=== PATIENT | female | born 1975 | race Caucasian/White ===

== ENCOUNTER → 2019-06-18 | Outpatient (CLI) | payer BC ==
--- NOTE | 2019-06-18 15:10 | Diagnostic Imaging Report ---
EXAMINATION: Left ankle radiographs, 3 views. COMPARISON: None. HISTORY: 43-year-old female, left ankle pain. Fell down stairs. FINDINGS: There is a very small area of high attenuation adjacent to the distal fibula and lateral talus which is just above the level of the distal fibular tip. This potentially could reflect an avulsion related injury of uncertain exact age. There is an ossification adjacent to the dorsal aspect of the head of the talus which appears at least partially corticated. This is most likely long-standing. Recommend comparison with earlier prior imaging, if available, to assess for potential stability. There is a normal variant os trigonum. The alignment of the ankle mortise is unremarkable. There is no otherwise identified potential acute fracture. There is soft tissue swelling adjacent to the lateral greater than medial malleoli. IMPRESSION: 1. Small area of high attenuation adjacent to the distal fibula and lateral talus which potentially could relate to an avulsion related injury of uncertain exact age. 2. Ossification adjacent to the dorsal aspect of the head of the talus which is at least partially corticated and suspected to be long-standing. Recommend comparison with prior imaging, if available. 3. No abnormal alignment of the ankle mortise. 4. Prominent soft tissue swelling adjacent to the lateral greater than medial malleoli. Dictated by: Dictated on workstation # [id number]
== END ==
LOC: RAD FS 13:41
PROVIDERS: ATTEND Nurse Practitioner
DX: M89.8X7 Other specified disorders of bone, ankle and foot (principal); M79.89 Other specified soft tissue disorders; W10.9XXA Fall (on) (from) unspecified stairs and steps, initial encounter
CPT/HCPCS: 73610

== ENCOUNTER → 2020-06-23 | Outpatient (CLI) | payer BC ==
--- NOTE | 2020-06-23 16:40 | Diagnostic Imaging Report ---
INDICATION: Foot pain. COMPARISON: Radiographs of the left ankle dated 06/18/2019. TECHNIQUE: Three radiographs of the left foot dated 06/23/2020. FINDINGS: A well-corticated ossific density is again identified along the dorsum of the talar neck, stable from the prior examination. A tiny ossific density is noted overlying the superior aspect of the anterior process of the calcaneus on the lateral radiograph. No additional fracture. No dislocation. No destructive osseous process. Minimal scattered degenerative changes, greatest involving the 1st MTP joint, with minimal joint space narrowing. The Lisfranc joint is well aligned. No significant calcaneal enthesophytes. IMPRESSION: Tiny calcific density associated with the superior aspect of the anterior process of the calcaneus which may relate to a tiny age-indeterminate fracture versus accessory ossicle. Should symptoms persist, further evaluation with a CT could be performed. Chronic avulsion fracture of the talar neck. Minimal scattered degenerative changes, greatest involving the 1st MTP joint. Dictated by: Dictated on workstation # [id number]
== END ==
LOC: RAD FS 11:54
PROVIDERS: ATTEND Nurse Practitioner Family
DX: M19.072 Primary osteoarthritis, left ankle and foot (principal)
CPT/HCPCS: 73630

== ENCOUNTER 2021-11-22 23:12 | Emergency (ER) | payer BC ==
[~2021-11-22] VITALS: Ht 173 cm; Wt 94.6 kg
[2021-11-22] MEDS ORDERED: KETOROLAC 60 MG/2 ML VIAL IM STA (23:27)
[2021-11-22] MEDS ORDERED: diphenhydrAMINE 50 MG/ML INJ (BENADRYL) IM STA (23:27)
[2021-11-22] MEDS ORDERED: PROMETHAZINE INJ 25 MG/ML (PHENERGAN) AMP IM STA (23:27)
--- NOTE | 2021-11-22 23:34 | ED Headache ---
General Chief Complaint: Head/Cervical Problems Stated Complaint: HEADACHE Source: patient History of Present Illness Date Seen by Provider: Nov 22, 2021 Time Seen by Provider: 23:16 Initial Comments 46-year-old female presenting with complaints of headache that has been bothering her for at least the last 3 days. She had thought she might have COVID but had a negative COVID test today at urgent care. She does have congestion and allergies that have been building up. She has not been using her nasal steroid that usually helps. She also has a history of migraine headaches and tried taking a migraine pill as well as ibuprofen tonight but the migraine pill did not help and the ibuprofen only helps some. She now feels sinus pressure and pressure in the back of her head. She has had some nausea but no vomiting. She denies fever, chills, cough, abdominal pain, pain with urination. She did take some melatonin to help her sleep tonight and is starting to get sleepy on arrival to the ED but states the reason she came to the emergency department tonight was because she could not sleep at home Timing/Duration: waxing and waning (Over the last 3 days) Severity/Quality: severe, throbbing Location: global Prior Headaches/Recent Trauma: frequent headaches Modifying Factors: worse with movement Associated Symptoms: No confusion, No fatigue; facial pain (Sinus pressure); No fever/chills, No flushing, No loss of consciousness; nausea/vomiting (Nausea but no vomiting), nasal congestion, nasal drainage; No numbness in legs/feet, No rash, No seizures, No sinus infection, No stiff neck, No vision changes, No weakness Allergies and Home Medications Allergies Coded Allergies: No Known Drug Allergies (Unverified , 11/22/21) Patient Home Medication List Home Medication List Reviewed: Yes Review of Systems Review of Systems Constitutional: No chills, No diaphoresis, No fever Eyes: See HPI Ears, Nose, Mouth, Throat: denies ear pain, denies ear discharge, denies nose pain; nose discharge; denies epistaxis, denies mouth pain Respiratory: No cough Cardiovascular: No chest pain Gastrointestinal: see HPI Genitourinary: no symptoms reported Musculoskeletal: no symptoms reported Skin: No rash Psychiatric/Neurological: See HPI Past Gnqzuga-Ohzcum-Rdhyuk Hx Seasonal Allergies Seasonal Allergies: Yes Past Medical History Surgery/Hospitalization HX: Migraine headaches Physical Exam Vital Signs Vital Signs - First Documented 11/22/21 23:26 Temp 36.0 Pulse 79 Resp 20 B/P (MAP) 154/105 (121) Pulse Ox 99 O2 Delivery Room Air Capillary Refill : Height, Weight, BMI Height: '" Weight: lbs. oz. kg; BMI Method: General Appearance: WD/WN, no apparent distress HEENT: PERRL/EOMI, pharynx normal, other (Tender to palpation over the frontal and maxillary sinuses bilaterally) Neck: non-tender, full range of motion, supple, normal inspection Cardiovascular: normal peripheral pulses, regular rate, rhythm Respiratory: chest non-tender, lungs clear, normal breath sounds, no respiratory distress, no accessory muscle use Gastrointestinal: normal bowel sounds, non tender, soft, no pulsatile mass Extremities: normal range of motion, non-tender, normal capillary refill Psychiatric: alert, oriented x 3 Crainal Nerves: normal hearing, normal speech, PERRL Coordination/Gait: normal gait Motor/Sensory: no motor deficit, no sensory deficit Skin: normal color, warm/dry; No rash Progress/Results/Core Measures Results/Orders My Orders Orders - PATRICK MCDUFFIE MD Ketorolac Injection (Toradol Injection) (11/22/21 23:27) Dexamethasone Injection (Decadron Inje (11/22/21 23:27) Diphenhydramine Injection (Benadryl Inje (11/22/21 23:27) Promethazine Injection (Phenergan Injec (11/22/21 23:27) Vital Signs/I&O 11/22/21 11/22/21 23:26 23:52 Temp 36.0 36.0 Pulse 79 79 Resp 20 20 B/P (MAP) 154/105 (121) 128/88 Pulse Ox 99 99 O2 Delivery Room Air Room Air Progress Progress Note : Progress Note Since she has no focal neurologic deficit and is having pain and pressure over the sinuses as well try migraine cocktail and add in a steroid to try and help with allergies and sinus pressure. Encouraged to check back through the primary provider for continued concerns. Departure Impression Primary Impression: Sinus headache Additional Impression: Migraine headache Qualified Codes: G43.019 - Migraine without aura, intractable, without status migrainosus Disposition: 01 HOME, SELF-CARE Condition: Stable Departure-Patient Inst. Decision time for Depature: 23:34 Referrals: [facility] [place] (PCP) Primary Care Physician CYNTHIA BURT APRN (Family) Primary Care Physician Patient Instructions: Headache, Adult ED, How to Keep Track of Your Headaches, Home Headache Remedies Add. Discharge Instructions: Rest in a cool dark room. Stay well-hydrated and drink plenty of fluids and electrolyte drinks. Continue with your regular medications at home. Check back with the clinic for continued concerns or if still not improving. All discharge instructions reviewed with patient and/or family. Voiced understanding. Work/School Note: Work Release Form Date Seen in the Emergency Department: Nov 22, 2021 Return to Work: Nov 24, 2021 Restrictions: No Restrictions PATRICK MCDUFFIE MD Nov 22, 2021 23:34
[2021-11-22 23:52] VITALS: BP 128/88
== END 2021-11-22 23:53 | disposition home or self-care (01) ==
LOC: EDUNIT# 23:12 → ER FS 23:15
DX: G43.909 Migraine, unspecified, not intractable, without status migrainosus (principal); Z28.310 Unvaccinated for COVID-19
CPT/HCPCS: 99285

== ENCOUNTER 2022-01-26 20:01 | Emergency (ER) | payer BC ==
[~2022-01-26] VITALS: Ht 173.7 cm; Wt 93.3 kg
--- NOTE | 2022-01-26 20:09 | ED Abdominal Pain ---
General Stated Complaint: ABD PAIN,N/V/D History of Present Illness Date Seen by Provider: Jan 26, 2022 Time Seen by Provider: 20:09 Initial Comments 46-year-old female with PMH of migraine/depression, is here with complaints of abdominal pain associated with nausea and vomiting and diarrhea for the past 3 days. Abdominal pain started 3 days ago and has been intermittent in nature and has slowly been worsening. Nausea and diarrhea began today with approximately 6 episodes of diarrhea, and one episode of vomiting. Patient had German food from a restaurant yesterday evening for dinner which has triggered her pain and symptoms worsen. No one else who ate at the restaurant is sick. Denies chest pain, palpitations, SOB, cough, fever, chills, lightheadedness, headache. Allergies and Home Medications Allergies Coded Allergies: No Known Drug Allergies (Unverified , 11/22/21) Patient Home Medication List Home Medication List Reviewed: Yes Review of Systems Review of Systems Constitutional: no symptoms reported EENTM: No Symptoms Reported Respiratory: No Symptoms Reported Cardiovascular: No Symptoms Reported Gastrointestinal: Abdominal Pain, Diarrhea, Nausea, Vomiting Genitourinary: No Symptoms Reported Musculoskeletal: no symptoms reported Skin: no symptoms reported Psychiatric/Neurological: No Symptoms Reported Endocrine: No Symptoms Reported Hematologic/Lymphatic: No Symptoms Reported Past Lecywsn-Edzhog-Heatcv Hx Seasonal Allergies Seasonal Allergies: Yes Past Medical History Surgery/Hospitalization HX: Migraine headaches Physical Exam Vital Signs Vital Signs - First Documented 01/26/22 20:16 Temp 36.4 Pulse 88 Resp 20 B/P (MAP) 133/83 (100) Pulse Ox 100 O2 Delivery Room Air Capillary Refill : Height/Weight/BMI Height: '" Weight: lbs. oz. kg; 31.00 BMI Method: General Appearance: WD/WN, no apparent distress HEENT: PERRL/EOMI Neck: non-tender, full range of motion Respiratory: chest non-tender, lungs clear, normal breath sounds Cardiovascular: regular rate, rhythm Gastrointestinal: normal bowel sounds, soft, no organomegaly, no pulsatile mass, tenderness (diffuse) Extremities: normal range of motion Back: normal inspection, no CVA tenderness Pelvic: normal external exam Neurologic/Psychiatric: alert, normal mood/affect, oriented x 3 Skin: normal color Focused Exam Lactate Level 01/26/22 20:30: Lactic Acid Level 1.25 Lactic Acid Level Laboratory Tests Test 01/26/22 20:30 Lactic Acid Level 1.25 MMOL/L (0.50-2.00) Progress/Results/Core Measures Results/Orders Lab Results Laboratory Tests Test 01/26/22 20:07 01/26/22 20:13 01/26/22 20:30 01/26/22 20:45 Range/Units Urine Color YELLOW Urine Clarity SL CLOUDY Urine pH 6.0 5-9 Urine Specific [place] 1.020 1.016-1.022 Urine Protein NEGATIVE NEGATIVE Urine Glucose (UA) NEGATIVE NEGATIVE Urine Ketones TRACE H NEGATIVE Urine Nitrite NEGATIVE NEGATIVE Urine Bilirubin 1+ H NEGATIVE Urine Urobilinogen 0.2 < = 1.0 MG/DL Urine Leukocyte Esterase 2+ H NEGATIVE Urine RBC (Auto) NEGATIVE NEGATIVE Urine RBC RARE /HPF Urine WBC 10-25 H /HPF Urine Squamous Epithelial Cells 10-25 H /HPF Urine Crystals NONE /LPF Urine Bacteria FEW H /HPF Urine Casts NONE /LPF Urine Mucus NEGATIVE /LPF Urine Culture Indicated YES Urine Test NEGATIVE NEGATIVE Urine Opiates Screen NEGATIVE NEGATIVE Urine Oxycodone Screen NEGATIVE NEGATIVE Urine Methadone Screen NEGATIVE NEGATIVE Urine Propoxyphene Screen NEGATIVE NEGATIVE Urine Barbiturates Screen NEGATIVE NEGATIVE Ur Tricyclic Antidepressants Screen NEGATIVE NEGATIVE Urine Phencyclidine Screen NEGATIVE NEGATIVE Urine Amphetamines Screen NEGATIVE NEGATIVE Urine Methamphetamines Screen NEGATIVE NEGATIVE Urine Benzodiazepines Screen POSITIVE H NEGATIVE Urine Cocaine Screen NEGATIVE NEGATIVE Urine Cannabinoids Screen NEGATIVE NEGATIVE White Blood Count 14.3 H 4.3-11.0 10^3/uL Red Blood Count 5.06 3.80-5.11 10^6/uL Hemoglobin 12.0 11.5-16.0 g/dL Hematocrit 38 35-52 % Mean Corpuscular Volume 75 L 80-99 fL Mean Corpuscular Hemoglobin 24 L 25-34 pg Mean Corpuscular Hemoglobin Concent 32 32-36 g/dL Red Cell Distribution Width 17.9 H 10.0-14.5 % Platelet Count 428 H 130-400 10^3/uL Mean Platelet Volume 11.0 9.0-12.2 fL Immature Granulocyte % (Auto) 0 % Neutrophils (%) (Auto) 80 H 42-75 % Lymphocytes (%) (Auto) 13 12-44 % Monocytes (%) (Auto) 7 0-12 % Eosinophils (%) (Auto) 1 0-10 % Basophils (%) (Auto) 0 0-10 % Neutrophils # (Auto) 11.4 H 1.8-7.8 10^3/uL Lymphocytes # (Auto) 1.8 1.0-4.0 10^3/uL Monocytes # (Auto) 1.0 0.0-1.0 10^3/uL Eosinophils # (Auto) 0.1 0.0-0.3 10^3/uL Basophils # (Auto) 0.0 0.0-0.1 10^3/uL Immature Granulocyte # (Auto) 0.1 0.0-0.1 10^3/uL Sodium Level 137 135-145 MMOL/L Potassium Level 3.6 3.6-5.0 MMOL/L Chloride Level 102 98-107 MMOL/L Carbon Dioxide Level 21 21-32 MMOL/L Anion Gap 14 5-14 MMOL/L Blood Urea Nitrogen 9 7-18 MG/DL Creatinine 0.92 0.60-1.30 MG/DL Estimat Glomerular Filtration Rate 77 BUN/Creatinine Ratio 10 Glucose Level 130 H 70-105 MG/DL Calcium Level 8.8 8.5-10.1 MG/DL Corrected Calcium 9.0 8.5-10.1 MG/DL Magnesium Level 2.2 1.6-2.4 MG/DL Total Bilirubin 0.3 0.1-1.0 MG/DL Aspartate Amino Transf (AST/SGOT) 15 5-34 U/L Alanine Aminotransferase (ALT/SGPT) 6 0-55 U/L Alkaline Phosphatase 82 40-136 U/L Troponin I < 0.30 <0.30 NG/ML Total Protein 6.8 6.4-8.2 GM/DL Albumin 3.8 3.2-4.5 GM/DL Lipase 30 8-78 U/L Lactic Acid Level 1.25 0.50-2.00 MMOL/L My Orders Orders - GLORIA MANRIQUEZ MD Drug Screen Stat (Urine) (01/26/22 20:09) Hcg,Qualitative Urine (01/26/22 20:09) Ua Culture If Indicated (01/26/22 20:09) Cbc With Automated Diff (01/26/22 20:10) Comprehensive Metabolic Panel (01/26/22 20:10) Hepatitis Panel Acute (01/26/22 20:10) Lactic Acid Analyzer (01/26/22 20:10) Lipase (01/26/22 20:10) Magnesium (01/26/22 20:10) Troponin I Fs (01/26/22 20:10) Ct Abd/Pelv W (Appendicitis) (01/26/22 20:18) Ed Iv/Invasive Line Start (01/26/22 20:18) Ns Iv 1000 Ml (Sodium Chloride 0.9%) (01/26/22 20:30) Ondansetron Injection (Zofran Injectio (01/26/22 20:30) Ketorolac Injection (Toradol Injection) (01/26/22 20:30) Famotidine Injection (Pepcid Injection) (01/26/22 20:30) Iohexol Injection (Omnipaque 350 Mg/Ml 1 (01/26/22 20:30) Received Contrast (Hold Metformin- Contr (01/26/22 20:30) Sodium Chloride Flush (Catheter Flush Sy (01/26/22 20:30) Ns (Ivpb) (Sodium Chloride 0.9% Ivpb Bag (01/26/22 20:30) Covid 19 Inhouse Test (01/26/22 20:36) Manual Differential (01/26/22 20:13) Urine Culture (01/26/22 20:07) Ceftriaxone 1 Gm Pre-Mix (Rocephin 1 Gm (01/26/22 21:00) Medications Given in ED Current Medications Medications Dose Ordered Sig/Reese Route Start Time Stop Time Status Last Admin Dose Admin Famotidine 20 mg ONCE ONCE IVP 01/26/22 20:30 01/26/22 20:31 DC 01/26/22 20:31 20 MG Ketorolac Tromethamine 15 mg ONCE ONCE IVP 01/26/22 20:30 01/26/22 20:31 DC 01/26/22 20:30 15 MG Ondansetron HCl 4 mg ONCE ONCE IVP 01/26/22 20:30 01/26/22 20:31 DC 01/26/22 20:32 4 MG Sodium Chloride 10 ml NEEDED PRN IV 01/26/22 20:30 UNV 01/26/22 20:48 10 ML Vital Signs/I&O 01/26/22 20:16 Temp 36.4 Pulse 88 Resp 20 B/P (MAP) 133/83 (100) Pulse Ox 100 O2 Delivery Room Air Progress Progress Note : Progress Note 1. ABDOMINAL PAIN: ACUTE GASTROENTERITIS - CT ABD: Findings suggestive of enteritis. Inflammatory bowel disease could a lso have this appearance in the appropriate clinical scenario. No bowel obstruction. Recommend correlation with patient history and follow-up as indicated. Small amount of free fluid in the abdomen and pelvis no evidence of free air. - CBC/ CMP: WBC is 14.3 with a left shift - Lipase:normal - NS IVF bolus STAT/ Toradol 15mg iv /Zofran 4mg iv/ Pepcid 20mg iv -The patient was seen in the ED, and treated appropriately to presentation at a specific point in time. Patient is informed that there is a possibility that disease and illness can evolve and change in acuity rapidly or slowly after patient is discharged from the ER. Precautionary advice given to the patient for immediate return to ER if symptoms worsen or do not resolve, and to seek emergency care sooner rather than later. Pt also advised on the importance of PCP follow up and compliance with management and follow up plan with PCP and/or specialist, as this is part of the management plan. Pt verbally expressed understanding. 2. ACUTE CYSTITIS : - UA is positive for leukocyte esterase, WBC, bacteria - UDS is positive for benzos - Ceftriaxone 1gm iv STAT in ER - Prescription for Cefpodoxime 200mg bid for 5 days - Prescription Zofran ODT as needed for nausea and vomiting Q4H - Adequate water intake advised, and bland diet - Follow up with PCP in 7 to 10 days Diagnostic Imaging Diagonstic Imaging: CT Plain Films/CT/US/NM/MRI: abdomen Departure Impression Primary Impression: Abdominal pain Qualified Codes: R10.84 - Generalized abdominal pain Additional Impressions: Acute gastroenteritis Acute cystitis without hematuria Disposition: 01 HOME, SELF-CARE Condition: Stable Departure-Patient Inst. Referrals: [facility] (PCP) Primary Care Physician CYNTHIA BURT APRN (Family) Primary Care Physician Patient Instructions: Acute Cystitis (DC), Viral Gastroenteritis, Adult (DC) Add. Discharge Instructions: - Prescription for Cefpodoxime 200mg bid for 5 days - Prescription Zofran ODT as needed for nausea and vomiting Q4H - Adequate water intake advised, and bland diet - Follow up with PCP in 7 to 10 days Scripts Ondansetron (Ondansetron Odt) 4 Mg Tab.rapdis 4 MG SL Q4H PRN for NAUSEA/VOMITING for 3 Days, #15 TAB Prov: GLORIA MANRIQUEZ MD 01/26/22 Cefpodoxime Proxetil (Cefpodoxime Proxetil) 200 Mg Tablet 200 MG PO BID for 5 Days, #10 TAB Prov: GLORIA MANRIQUEZ MD 01/26/22 GLORIA MANRIQUEZ MD Jan 26, 2022 20:09
[2022-01-26 20:22] LABS: CLARITY,URINE SL CLOUDY; COLOR,URINE YELLOW; GLUCOSE, URINE (UA) NEGATIVE (NEGATIVE); KETONES,URINE TRACE (NEGATIVE); LEUKOCYTE ESTERASE ,URINE 2+ (NEGATIVE); NITRITE,URINE NEGATIVE (NEGATIVE); PROTEIN,URINE NEGATIVE (NEGATIVE)
[2022-01-26 20:23] LABS: HCG,QUALITATIVE URINE NEGATIVE (NEGATIVE)
[2022-01-26 20:29] LABS: BASOPHILS % (AUTO) 0 % (0-10); EOSINOPHILS # (AUTO) 0.1 10^3/uL (0.0-0.3); EOSINOPHILS % (AUTO) 1 % (0-10); HEMATOCRIT 38 % (35-52); LYMPHOCYTES # (AUTO) 1.8 10^3/uL (1.0-4.0); LYMPHOCYTES % (AUTO) 13 % (12-44); MEAN CORPUSCULAR HEMOGLOBIN 24 pg (25-34); MEAN CORPUSCULAR HGB CONC 32 g/dL (32-36); MEAN CORPUSCULAR VOLUME 75 fL (80-99); MONOCYTES % (AUTO) 7 % (0-12); NEUTROPHILS # (AUTO) 11.4 10^3/uL (1.8-7.8); NEUTROPHILS % (AUTO) 80 % (42-75); PLATELET COUNT 428 10^3/uL (130-400); WHITE BLOOD COUNT 14.3 10^3/uL (4.3-11.0)
[2022-01-26] MEDS ORDERED: FAMOTIDINE 20MG/2ML IV (PEPCID) IVP ONE (20:30)
[2022-01-26] MEDS ORDERED: KETOROLAC 30 MG/ML VIAL IVP ONE (20:30)
[2022-01-26] MEDS ORDERED: ONDANSETRON 4 MG/2 ML (SDV) Z0FRAN IVP ONE (20:30)
[2022-01-26] MEDS ORDERED: NS 100 ML (IVPB) BAG IV ONE (20:30)
[2022-01-26] MEDS ORDERED: HOLD METFORMIN - RECEIVED CONTRAST 20 ML VIAL IV SCH (20:30)
[2022-01-26] MEDS ORDERED: IOHEXOL 350 MG/ML 100 ML (OMNIPAQUE 350) VIAL IV ONE (20:30)
[2022-01-26] MEDS ORDERED: NS IV 1000 ML 1,000 ML IV SCH (20:30)
[2022-01-26] MEDS ORDERED: CATHETER FLUSH 10 ML SYR IV PRN (20:30)
[2022-01-26 20:39] LABS: BACTERIA,URINE FEW /HPF; BILIRUBIN,URINE 1+ (NEGATIVE); RBC,URINE RARE /HPF
[2022-01-26 20:40] LABS: BENZODIAZEPINES SCREEN URINE POSITIVE (NEGATIVE)
[2022-01-26 20:41] LABS: AMPHETAMINE SCREEN, URINE NEGATIVE (NEGATIVE); BARBITURATE SCREEN URINE NEGATIVE (NEGATIVE); CANNABINOID SCREEN, URINE NEGATIVE (NEGATIVE); COCAINE SCREEN URINE NEGATIVE (NEGATIVE); METHADONE STAT NEGATIVE (NEGATIVE); OPIATE SCREEN URINE NEGATIVE (NEGATIVE); OXYCODONE STAT NEGATIVE (NEGATIVE); PROPOXYPHENE STAT NEGATIVE (NEGATIVE); TRICYCLIC ANTIDEPRESSANTS SCRE NEGATIVE (NEGATIVE)
[2022-01-26 20:51] LABS: BUN/CREATININE RATIO 10; CALCIUM 8.8 MG/DL (8.5-10.1); CARBON DIOXIDE 21 MMOL/L (21-32); CHLORIDE 102 MMOL/L (98-107); CREATININE SERUM 0.92 MG/DL (0.60-1.30); GFR ESTIMATED 77; GLUCOSE 130 MG/DL (70-105); SODIUM 137 MMOL/L (135-145)
[2022-01-26 20:52] LABS: ALANINE AMINOTRANSFERASE 6 U/L (0-55); ALBUMIN 3.8 GM/DL (3.2-4.5); ALKALINE PHOSPHATASE 82 U/L (40-136); BILIRUBIN,TOTAL 0.3 MG/DL (0.1-1.0); LIPASE 30 U/L (8-78); MAGNESIUM 2.2 MG/DL (1.6-2.4); POTASSIUM 3.6 MMOL/L (3.6-5.0); TOTAL PROTEIN 6.8 GM/DL (6.4-8.2)
[2022-01-26] MEDS ORDERED: cefTRIAXone 1 GM PRE-MIX 50 ML IV STA (21:00)
--- NOTE | 2022-01-26 21:57 | Diagnostic Imaging Report ---
EXAMINATION: CT abdomen and pelvis with intravenous contrast. TECHNIQUE: Multiple contiguous axial images were obtained through the abdomen and pelvis after the uneventful administration of intravenous contrast. All CT scans use one or more of the following dose optimizing techniques: automated exposure control, MA and/or KvP adjustment based on patient size and exam type or iterative reconstruction. HISTORY: Diffuse abdominal pain. Nausea and vomiting. COMPARISON: None available. FINDINGS: The heart is unremarkable. The included lung bases are clear. The liver, spleen, pancreas, adrenal glands, and kidneys have a normal appearance. The gallbladder is unremarkable. There is no pathologically enlarged mesenteric or retroperitoneal adenopathy. There is wall thickening and edema involving numerous loops of small bowel in the abdomen and pelvis. No evidence of bowel obstruction. There is a small volume of free fluid in the abdomen and pelvis. No evidence of free air. The appendix is normal and is seen in the right lower quadrant. No acute osseous abnormality. There is scattered calcified aortic and iliac atherosclerotic plaque without aneurysm. Ureters and bladder are grossly normal. There is no free air, loculated collection or adenopathy in the pelvis. IMPRESSION: 1. Findings suggestive of enteritis. Inflammatory bowel disease could also have this appearance in the appropriate clinical scenario. No bowel obstruction. Recommend correlation with patient history and follow-up as indicated. 2. Small amount of free fluid in the abdomen and pelvis. No evidence of free air. Dictated by: Dictated on workstation # [id number]
[2022-01-26 22:44] LABS: BAND NEUTROPHILS 0 %; BASOPHILS % (MANUAL) 0 %; EOSINOPHILS % (MANUAL) 1 %; HYPOCHROMASIA SLIGHT; LYMPHOCYTES % (MANUAL) 15 %; MONOCYTES % (MANUAL) 7 %; NEUTROPHILS % (MANUAL) 77 %
[2022-01-26] MEDS ORDERED: CEFP200T2 PO (22:47)
[2022-01-26] MEDS ORDERED: ONDA4TAB11 SL (22:47)
[2022-01-26 23:00] VITALS: BP 129/80
[2022-01-27 21:22] LABS: HEPATITIS C ANTIBODY C Non-Reactive (Non-Reactive)
== END 2022-01-26 20:45 | disposition home or self-care (01) ==
LOC: EDUNIT# 20:01 → ER FS 20:02
DX: K52.9 Noninfective gastroenteritis and colitis, unspecified (principal); N30.00 Acute cystitis without hematuria; Z20.822 Contact with and (suspected) exposure to COVID-19; Z28.310 Unvaccinated for COVID-19
CPT/HCPCS: 36415; 74177; 80053; 80074; 80306; 81000; 83605; 83690; 83735; 84484; 84703; 85007; 85027; 87088; 87636; Q9967

== ENCOUNTER 2022-03-24 05:36 | Outpatient (CLI) | payer BC ==
[~2022-03-24] VITALS: Ht 170.2 cm; Wt 94.1 kg
[~2022-03-24 05:36] MED LIST: CEFP200T2 PO; ONDA4TAB11 SL
[2022-03-28] MEDS ORDERED: NORE-106 PO (10:06)
[2022-03-28] MEDS ORDERED: TOPI25TA10 PO (10:06)
[2022-03-28] MEDS ORDERED: FLUO40CA12 PO (10:06)
[2022-03-28] MEDS ORDERED: PANT40TA52 PO (10:06)
[2022-03-28] MEDS ORDERED: LORA10CA PO (10:06)
[2022-03-28] MEDS ORDERED: LAMO5TB.3 PO (10:06)
[2022-03-28] MEDS ORDERED: FLUO20CA42 PO (10:06)
== END 2022-03-28 10:11 | disposition home or self-care (01) ==
LOC: PREOP 05:36
PROVIDERS: ATTEND Surgery
DX: Z01.818 Encounter for other preprocedural examination (principal)

== ENCOUNTER 2022-03-31 10:59 | Day surgery (SDC) | payer BC ==
[2022-03-31] VITALS (11 sets, daily range): BP systolic 104–123; BP diastolic 63–84
[~2022-03-31] VITALS: Ht 170 cm; Wt 94.0 kg
[~2022-03-31 10:59] MED LIST changes: +FLUO20CA42 PO; +FLUO40CA12 PO; +LAMO5TB.3 PO; +LORA10CA PO; +NORE-106 PO; +PANT40TA52 PO; +TOPI25TA10 PO
[2022-03-31] MEDS ORDERED: BUP/EPI 0.25% 1:200,000 (MARCAINE) 30 ML VIAL ONE (11:05)
[2022-03-31] MEDS ORDERED: ceFAZolin INJECTION 2,000 MG in NS (IVPB) 50 ML IV ONE (11:15)
[2022-03-31] MEDS ORDERED: MIDAZOLAM 2 MG/2 ML (VERSED) VIAL ONE (11:33)
[2022-03-31] MEDS ORDERED: LIDOCAINE PF 2% 5 ML (XYLOCAINE) VIAL ONE (11:33)
[2022-03-31] MEDS ORDERED: fentaNYL INJ 100 MCG/2 ML AMP ONE (11:33)
[2022-03-31] MEDS ORDERED: proPOfol 200 MG/20 ML (DIPRIVAN) VIAL IV ONE (11:33)
[2022-03-31] MEDS ORDERED: ROCURONIUM 10 MG/ML 5 ML SYRINGE IV ONE (11:33)
[2022-03-31] MEDS ORDERED: SEVOFLURANE (ULTANE) 15 ML INHAL SOLN ONE ×2 (11:33→12:45)
[2022-03-31] MEDS: LACTATED RINGERS 1,000 ML IV PRN ×2 (11:42→12:42)
[2022-03-31] MEDS ORDERED: BUP/EPI 0.25% 1:200,000 (MARCAINE) 30 ML VIAL IJ ONE (12:22)
[2022-03-31] MEDS ORDERED: IOHEXOL 240 MGI/ML 50 ML (OMNIPAQUE) VIAL INJ ONE (12:23)
[2022-03-31] MEDS ORDERED: NEOSTIGMINE (BLOXIVERZ ) 1 MG/1ML 10 ML VIAL ONE (12:44)
[2022-03-31] MEDS ORDERED: GLYCOPYRROLATE 0.2 MG/ML (ROBINUL) 2 ML VIAL ONE (12:44)
[2022-03-31] MEDS ORDERED: ACHD5005 PO (13:04)
[2022-03-31] MEDS ORDERED: DOCU-143 PO (13:04)
--- NOTE | 2022-03-31 13:05 | Discharge Inst-Simple/Standard ---
Discharge Inst-Standard Discharge Medications New, Converted or Re-Newed RX: Transmitted to Pharmacy Patient Instructions/Follow Up Plan of Care/Instructions/FU: 2 weeks Huey Activity as Tolerated: No Discharge Diet: Regular Diet Other Inst to Patient Follow up Appt: Make appointment for 2 weeks. Instructions: No lifting greater than 10 pounds. No strenuous activity. May shower in 24 hours, no tub bath or soaking. Use incentive spirometer at home as directed. No Smoking Skin/Wound Care: You have special glue over incision, it will fall off on it's own. Symptoms to Report: Appetite Changes, Extremity Discoloration, Numbness/Tingling, Swelling Increased, Bleeding Excessive, Eyesight Changes, Pain Increased, Urine Color Change, Constipation(Persistent), Fever over 101 degree F, Pain/Pressure in chest, Urinating Difficulty, Cough Up/Vomit Blood, Heart Beat Irreg/Pounding, Pain/Pressure in jaw, Vaginal Bleeding Increase, Cramps in feet or legs, Lightheadedness, Pain/Pressure in shoulder, Diarrhea(Persistent), Memory Changes Suddenly, Questions/Concerns, Weight gain consecutive days, Dizziness/Fainting, Nausea/Vomiting, Shortness of Breath, Weight gain over 2 pounds. If eyes or skin turn yellow notify physician. If questions or concerns contact your physician Or seek help at emergency department. DARRION ESTES DO Mar 31, 2022 13:05
--- NOTE | 2022-03-31 13:07 | Progress Note-Post Operative ---
Post-Operative Progess Note Surgeon (s)/[employer] (s) Surgeon DARRION ESTES DO [employer] And Vice: Dr. Schilling to assist in retraction dissection and closure. Pre-Operative Diagnosis CHOLELITHIASIS, RUQ PAIN Post-Operative Diagnosis same Procedure & Operative Findings Date of Procedure 03/31/22 Procedure Performed/Findings PROCEDURE: Laparoscopic cholecystectomy with intraoperative cholangiogram. COMPLICATIONS: None. PROCEDURE: The patient was taken to the operating suite and was prepped and draped in sterile fashion. A surgical pause was performed. Just superior to the umbilicus, a 12 mm incision was made. Dissection was taken down to the fascia, which was then scored and grasped with a Khari and the abdomen was then entered. A 0 Vicryl suture was placed in a [id number] fashion and a An trocar was placed and secured. Pneumoperitoneum was achieved. A 5mm trochar place in the subxyphoid and 2 in the right upper quadrant. The gallbladder was then grasped and elevated. Adhesions had to be taken down with blunt and cautery dissection. The cystic duct, and cystic artery were then dissected out. Clip was placed on the distal portion of the cystic duct which was then partially transected. An arrow catheter was inserted into the duct. The cholangiogram was then performed. No filing defects and contrast made its way into the duodenum. Catheter removed. Clips were placed on proximal portion of the cystic duct and then the duct was then transected. Clips were placed along the proximal and distal portion of the cystic artery which was then transected. Hook cautery was used to dissect the gallbladder from the gallbladder fossa achieving hemostasis. The gallbladder was placed in an Endobag and removed through the 12 mm trocar site. The abdomen was then reinspected. Copious amounts of irrigation were used to irrigate the abdomen and there were no signs of active bleeding. Hemostasis had been achieved. The 12 mm fascial defect was then closed with 0 Vicryl suture that had been placed in a [id number] fashion. The abdomen was then desufflated, the trocars were removed. The abdomen was then washed and dried. The skin was then closed using 4-0 Monocryl in a subcuticular fashion. The abdomen was washed and dried and Skin Affix was place over incisions. Patient tolerated the procedure well without any complications and was taken to the recovery room in stable condition. Anesthesia Type general Estimated Blood Loss Estimated blood loss (mL): minimal Specimens/Packing Specimens Removed gallbladder DARRION ESTES DO Mar 31, 2022 13:07
[2022-03-31] MEDS ORDERED: fentaNYL INJ 100 MCG/2 ML AMP IVP ONE (13:15)
[2022-03-31] MEDS ORDERED: HYDROmorphone 2 MG/ML VIAL (DILAUDID) IV ONE (13:15)
[2022-03-31] MEDS ORDERED: PROMETHAZINE INJ 25 MG/ML (PHENERGAN) AMP IVP ONE (13:15)
[2022-03-31] MEDS ORDERED: MEPERIDINE (DEMEROL) INJ 50 MG/ML IVP ONE (13:15)
[2022-03-31] MEDS ORDERED: ONDANSETRON 4 MG/2 ML (SDV) Z0FRAN IVP PRN (13:15)
--- NOTE | 2022-03-31 15:04 | Anesthesia-General Post-Op ---
General Patient Condition Mental Status/LOC: Same as Preop Cardiovascular: Satisfactory Nausea/Vomiting: Absent Respiratory: Satisfactory Pain: Controlled Complications: Absent Post Op Complications Complications None Follow Up Care/Instructions Patient Instructions None needed. Anesthesia/Patient Condition Patient Condition Patient is doing well, no complaints, stable vital signs, no apparent adverse anesthesia problems. No complications reported per nursing. ESTEPHANIA DORAN CRNA Mar 31, 2022 15:04
--- NOTE | 2022-03-31 16:57 | Diagnostic Imaging Report ---
INDICATION: Abdominal pain. EXAMINATION: Operative cholangiogram performed with injection of the cystic duct stump and surgery. 26 images were obtained, 8.5 seconds of fluoroscopy time was used. FINDINGS: Intraoperative views demonstrate normal caliber of the biliary tree with no filling defects in the common bile duct. Contrast passes to the duodenum without obstruction. IMPRESSION: Unremarkable operative cholangiogram. Dictated by: Dictated on workstation # [id number]
== END 2022-03-31 15:10 | disposition home or self-care (01) ==
LOC: SDC 10:59
PROVIDERS: ATTEND Surgery
DX: K81.1 Chronic cholecystitis (principal); K66.0 Peritoneal adhesions (postprocedural) (postinfection); E66.9 Obesity, unspecified; Z68.32 Body mass index [BMI] 32.0-32.9, adult; Z87.891 Personal history of nicotine dependence
CPT/HCPCS: 76000; 84703; 87081; 88304